=== PATIENT | male | born 1975 | race Caucasian/White ===

== ENCOUNTER → 2019-01-06 | Outpatient (CLI) | payer OTHER ==
--- NOTE | 2019-01-06 15:04 | RAD ---
Bilateral Duplex Carotid Ultrasound, 01/06/2019 Comparison: None available Indication: Dizziness and lightheadedness, hypertension Procedure: Real-time, grayscale, color flow, duplex Doppler and spectral analysis off the carotid arteries is performed and images are obtained . Vertebral arteries were also imaged FINDINGS: Mild scattered soft plaquing seen in both carotid bulbs. No significant calcified plaque is identified Peak systolic velocities in cm/sec: Right side: CCA: 72 ICA: 57 ICA (End Diastolic Velocity): 23 ICA/CCA Ratio: 0.79 Left side: CCA: 89.0 ICA: 73.0 ICA (End Diastolic Velocity): 21.0 ICA/CCA Ratio: 0.82 Vertebral arteries are antegrade. IMPRESSION: 1. Mild soft atheromatous plaquing involving both carotid bulbs and proximal internal carotid arteries. 2. No hemodynamically significant stenosis of internal carotid arteries. PQRS Compliance Statement - Stenosis calculations for CT, MR and conventional angiography are based upon measurement of the distal ICA diameter in accordance with the NASCET methodology. Stenosis calculations for carotid ultrasound studies are derived from validated velocity criteria which are known to correlate with the NASCET methodology. Electronically signed by: Loraine Oconnell MD (01/06/2019 3:01 PM) [place] [id number]
== END | disposition home or self-care (01) ==
LOC: US 12:31
PROVIDERS: ATTEND Nurse Practitioner Family
DX: I65.23 Occlusion and stenosis of bilateral carotid arteries (principal); E78.2 Mixed hyperlipidemia; E11.65 Type 2 diabetes mellitus with hyperglycemia; I10 Essential (primary) hypertension; R53.83 Other fatigue
CPT/HCPCS: 93880

== ENCOUNTER 2019-02-02 08:27 | Emergency (ER) | payer OTHER ==
[~2019-02-02] VITALS: Ht 182.9 cm; Wt 101.2 kg
[2019-02-02] MEDS ORDERED: IV NORMAL SALINE 1,000ML 1,000 ML IV SCH (09:00)
--- NOTE | 2019-02-02 09:11 | EKG ---
[address] [address] Test Date: 2019-02-02 Test Time: 09:09:40 Pat Name: SUMAN RESTREPO Department: Room: Gender: M Postdoctoral Scholar: : 1975 Requested By: KATHY CONDE Order Number: [id number] Reading MD: Elvin Hsu MD Measurements Intervals [place] Rate: 80 P: 26 NM: 156 QRS: 32 QRSD: 90 T: 27 QT: 410 QTc: 477 Interpretive Statements SINUS RHYTHM NON-SPECIFIC ST/T CHANGES PROLONGED QT Electronically Signed On 02-05-2019 9:48:17 CDT by Elvin Hsu MD
--- NOTE | 2019-02-02 09:26 | RAD ---
PORTABLE CHEST 1V History: short of breath, attempted suicide Comparison: February 17, 2008 Findings: AP view of the chest is submitted. There is no infiltrate, pleural fluid, pneumothorax. Heart size is stable, within normal limits. Impression: 1. No acute radiographic abnormality is identified. Electronically signed by: Elliot Slade MD (02/02/2019 9:23 AM) [id number]
[2019-02-02 09:30] LABS: BASO # 0.1 x10^3/uL (0.0-0.2); BASO % 1 % (0-3); EOS # 0.1 x10^3/uL (0.0-0.7); EOS % 1 % (0-3); HEMATOCRIT 45.9 % (39.0-53.0); HEMOGLOBIN 15.9 g/dL (13.0-17.5); LYMPH # 3.5 x10^3/uL (1.0-4.8); LYMPH % 38 % (24-48); MEAN CORPUSCULAR HEMOGLOBIN 27 pg (25-35); MEAN CORPUSCULAR HGB CONC 35 g/dL (31-37); MEAN CORPUSCULAR VOLUME 78 fL (79-100); MONO # 0.8 x10^3/uL (0.0-1.1); MONO % 9 % (0-9); NEUT # 4.7 x10^3uL (1.8-7.7); NEUT % 52 % (31-73); PLATELET COUNT 292 x10^3/uL (140-400); RED BLOOD COUNT 5.85 x10^6/uL (4.30-5.70); RED CELL DISTRIBUTION WIDTH 14.2 % (11.5-14.5); WHITE BLOOD COUNT 9.2 x10^3/uL (4.0-11.0)
[2019-02-02 09:46] LABS: SALIC 3.1 mg/dL (2.8-20.0)
[2019-02-02 09:47] LABS: ACETAMIN < 2.0 mcg/mL (10-30); ETHANOL < 10 mg/dL (0-10)
[2019-02-02 09:51] LABS: ALBUMIN 3.6 g/dL (3.4-5.0); CALCIUM 8.8 mg/dL (8.5-10.1); CREATININE 1.1 mg/dL (0.7-1.3); GFR 73.1; MAGNESIUM 1.7 mg/dL (1.8-2.4); POTASSIUM 3.1 mmol/L (3.5-5.1); TOTAL BILIRUBIN 0.5 mg/dL (0.2-1.0); TOTAL PROTEIN 7.2 g/dL (6.4-8.2)
--- NOTE | 2019-02-02 10:06 | PHYS DOC ---
Past History Past Medical History: Depression, Diabetes, Hypertension Past Surgical History: Other Additional Past Surgical Histo: bilateral knee surgeries Smoking: Cigarettes, Greater than 1 pack/day Alcohol Use: None Drug Use: None Adult General Chief Complaint Chief Complaint: SUICDAL IDEATION HPI HPI Patient is a 43-year-old male who presents with suicide ideation and attempt. Patient has been going through a difficult time over the past 3-6 months. Feeling weak, near syncopal episodes multiple times, especially with standing. He is been getting evaluated by his primary care team for this. For the past several weeks he has been having suicidal ideation. This morning he went to the garage to tie a electric cord around a rafter to hang himself but found that the rafters were too low so he presented to the emergency department. He denies any homicidal ideation. Denies any hallucinations. Denies any coingestants as an overdose attempt.[] Review of Systems Review of Systems Constitutional: Denies fever or chills [] Eyes: Denies change in visual acuity, redness, or eye pain [] HENT: Denies nasal congestion or sore throat [] Respiratory: Denies cough or shortness of breath [] Cardiovascular: No chest pain or palpitations[] GI: Denies abdominal pain, nausea, vomiting, bloody stools or diarrhea [] : Denies dysuria or hematuria [] Musculoskeletal: Denies back pain or joint pain [] Integument: Denies rash or skin lesions [] Neurologic: Denies headache, focal weakness or sensory changes [] Endocrine: Denies polyuria or polydipsia [] All other systems were reviewed and found to be within normal limits, except as documented in this note. Current Medications Current Medications Current Medications Medications (Trade) Dose Ordered Sig/Jovan Start Time Stop Time Status Last Admin Dose Admin Sodium Chloride 1,000 ml @ 1,000 mls/hr Q1H 02/02/19 09:00 02/02/19 09:59 02/02/19 09:23 1,000 MLS/HR Allergies Allergies Allergies Coded Allergies Type Severity Reaction Last Updated Verified methocarbamol Allergy Unknown 02/02/19 Yes Physical Exam Physical Exam Constitutional: Well developed, well nourished, no acute distress, non-toxic appearance. [] HENT: Normocephalic, atraumatic, bilateral external ears normal, oropharynx moist, no oral exudates, nose normal. [] Eyes: PERRLA, EOMI, conjunctiva normal, no discharge. [] Neck: Normal range of motion, no tenderness, supple, no stridor. [] Cardiovascular:Heart rate regular rhythm, no murmur [] Lungs & Thorax: Bilateral breath sounds clear to auscultation [] Abdomen: Bowel sounds normal, soft, no tenderness, no masses, no pulsatile masses. [] Skin: Warm, dry, no erythema, no rash. [] Back: No tenderness, no CVA tenderness. [] Extremities: No tenderness, no cyanosis, no clubbing, ROM intact, no edema. [] Neurologic: Alert and oriented X 3, normal motor function, normal sensory function, no focal deficits noted. [] Psychologic: Affect flat, mood depressed. Poor eye contact[] Current Patient Data Lab Results Laboratory Tests Test 02/02/19 09:15 White Blood Count 9.2 x10^3/uL (4.0-11.0) Red Blood Count 5.85 x10^6/uL (4.30-5.70) H Hemoglobin 15.9 g/dL (13.0-17.5) Hematocrit 45.9 % (39.0-53.0) Mean Corpuscular Volume 78 fL (79-100) L Mean Corpuscular Hemoglobin 27 pg (25-35) Mean Corpuscular Hemoglobin Concent 35 g/dL (31-37) Red Cell Distribution Width 14.2 % (11.5-14.5) Platelet Count 292 x10^3/uL (140-400) Neutrophils (%) (Auto) 52 % (31-73) Lymphocytes (%) (Auto) 38 % (24-48) Monocytes (%) (Auto) 9 % (0-9) Eosinophils (%) (Auto) 1 % (0-3) Basophils (%) (Auto) 1 % (0-3) Neutrophils # (Auto) 4.7 x10^3uL (1.8-7.7) Lymphocytes # (Auto) 3.5 x10^3/uL (1.0-4.8) Monocytes # (Auto) 0.8 x10^3/uL (0.0-1.1) Eosinophils # (Auto) 0.1 x10^3/uL (0.0-0.7) Basophils # (Auto) 0.1 x10^3/uL (0.0-0.2) Sodium Level 134 mmol/L (136-145) L Potassium Level 3.1 mmol/L (3.5-5.1) L Chloride Level 96 mmol/L (98-107) L Carbon Dioxide Level 26 mmol/L (21-32) Anion Gap 12 (6-14) Blood Urea Nitrogen 12 mg/dL (8-26) Creatinine 1.1 mg/dL (0.7-1.3) Estimated GFR (Cockcroft-Gault) 73.1 BUN/Creatinine Ratio 11 (6-20) Glucose Level 93 mg/dL (70-99) Calcium Level 8.8 mg/dL (8.5-10.1) Magnesium Level 1.7 mg/dL (1.8-2.4) L Total Bilirubin 0.5 mg/dL (0.2-1.0) Aspartate Amino Transferase (AST) 26 U/L (15-37) Alanine Aminotransferase (ALT) 45 U/L (16-63) Alkaline Phosphatase 57 U/L (46-116) Troponin I Quantitative < 0.017 ng/mL (0-0.055) MQ-Ypb-Q-Type Natriuretic Peptide 23 pg/mL (0-124) Total Protein 7.2 g/dL (6.4-8.2) Albumin 3.6 g/dL (3.4-5.0) Albumin/Globulin Ratio 1.0 (1.0-1.7) Lipase 199 U/L (73-393) Salicylates Level 3.1 mg/dL (2.8-20.0) Salicylate Last Dose Date Unk Salicylate Last Dose Time Unk Acetaminophen Level < 2.0 mcg/mL (10-30) L Acetaminophen Last Dose Date Unk Acetaminophen Last Dose Time Unk Ethyl Alcohol Level < 10 mg/dL (0-10) EKG EKG EKG shows a sinus rhythm at 80 bpm, normal axis, QTC of 477 ms, no ST elevations. No terminal 40 ms QRS prolongation in lead aVR. Interpreted by me at 0912[] Radiology/Procedures Radiology/Procedures PORTABLE CHEST 1V History: short of breath, attempted suicide Comparison: February 17, 2008 Findings: AP view of the chest is submitted. There is no infiltrate, pleural fluid, pneumothorax. Heart size is stable, within normal limits. Impression: 1. No acute radiographic abnormality is identified.[] Course & Med Decision Making Course & Med Decision Making Pertinent Labs and Imaging studies reviewed. (See chart for details) ED course: Patient arrived, was placed in bed, and tolerated exam well. IV access was established and he was given IV fluids. After the return of the laboratory and imaging studies, these were discussed with the patient and family who voiced understanding. Patient was determined to be medically stable for further evaluation by the mental health team. He is medically cleared. Attempted to use the computer system however that was having issues with connectivity so at 1109 waiting for in person evaluation by mental health professional. Screener arrived at approximately 11:30 1530: resting comfortably. Patient refused lunch. Family at bedside. At approximately 1745 except in some was granted from [facility]. Nurse to nurse communication is occurring at 1755. Patient care endorsed to the oncoming emergency physician at 1800 pending transfer. Medical decision making: Patient with suicide attempt, no evidence of an acute coronary syndrome, significant toxidrome, no active bleeding despite the elevated INR with the patient being on Coumadin. No evidence of salicylate or acetaminophen toxicity, nor ethanol[] Dragon Disclaimer Dragon Disclaimer This electronic medical record was generated, in whole or in part, using a voice recognition dictation system. Departure Departure: Impression: Primary Impression: Depression Additional Impression: Suicide attempt Disposition: 65 XFER TO PSYCH HOSP/UNIT Condition: IMPROVED Referrals: RUPALI ARITA MD (PCP) Problem Qualifiers Primary Impression: Depression Depression Type: unspecified Qualified Codes: F32.9 - Major depressive disorder, single episode, unspecified KATHY CONDE DO Feb 02, 2019 10:06
[2019-02-02 10:15] LABS: AMPHETAMINE/METHAMPHETAMINE NEG (NEG); BARBITURATES NEG (NEG); BENZODIAZEPINES NEG (NEG); CANNABINOIDS NEG (NEG); COCAINE NEG (NEG); METHADONE NEG (NEG); OPIATES NEG (NEG); PHENCYCLIDINE NEG (NEG)
[2019-02-02 10:20] LABS: BACTERIA,URINE 0 /HPF (0-FEW); BILIRUBIN,URINE NEG (NEG); CLARITY,URINE CLEAR; COLOR,URINE YELLOW; GLUCOSE,URINE 500 mg/dL (NEG); NITRITE,URINE NEG (NEG); RBC,URINE 0 /HPF (0-2); SQUAMOUS EPITHELIAL CELL,UR OCC /LPF; UROBILINOGEN,URINE 0.2 mg/dL (0.2 mg/dL); WBC,URINE 0 /HPF (0-4)
[2019-02-02] MEDS ORDERED: NICOTINE 21MG PATCH. TD ONE (18:00)
[2019-02-02 18:31] VITALS: BP 143/74
== END 2019-02-02 19:51 ==
LOC: ER 08:27
DX: T14.91XA Suicide attempt, initial encounter (principal); F32.9 Major depressive disorder, single episode, unspecified; R55 Syncope and collapse; F17.210 Nicotine dependence, cigarettes, uncomplicated; I10 Essential (primary) hypertension; Z88.8 Allergy status to other drugs, medicaments and biological substances; X83.8XXA Intentional self-harm by other specified means, initial encounter; Y93.89 Activity, other specified; Y92.89 Other specified places as the place of occurrence of the external cause; Y99.8 Other external cause status
CPT/HCPCS: 36415; 71045; 80053; 80307; 80329; 81001; 83690; 83735; 83880; 84443; 84484; 85025; 85610; 93005; 96360; 96361; 99285; G0480; 82003; J7030

== ENCOUNTER 2019-10-29 17:04 | Emergency (ER) | payer MEDICAID, OTHER ==
[~2019-10-29] VITALS: Ht 182.9 cm; Wt 105.8 kg
[2019-10-29] MEDS ORDERED: BENZTROPINE 2 MG/2 ML AMPUL. IM STA (17:36)
--- NOTE | 2019-10-29 17:38 | PHYS DOC ---
Past History Past Medical History: Bipolar, Depression, Diabetes, Hypertension Past Surgical History: Appendectomy, Cholecystectomy, Other Additional Past Surgical Histo: bilateral knee surgeries Smoking: Cigarettes, Greater than 1 pack/day Alcohol Use: None Drug Use: None Adult General Chief Complaint Chief Complaint: Insomnia HPI HPI Patient is a 43-year-old male who presented to ER today for evaluation of not able to sleep for the last 48 hours. Patient said he was admitted at [facility] for 3 days due to depression and suicidal ideation. Patient was given medication while in the hospital, he slept for 3 days very well there.. Patient felt much better, he was discharged home with trazodone. Since coming home, patient was not able to sleep. Patient took the trazodone but not working for him. So he came here for evaluation. Patient denies any suicidal ideation, denies homicidal ideation. Patient denies any abdominal pain, no chest pain, headache. he denies any cough or fever, no trouble breathing, no headache. All other ROS is negative unless otherwise noted in HPI Review of Systems Review of Systems See above Current Medications Current Medications Current Medications Medications (Trade) Dose Ordered Sig/Jovan Start Time Stop Time Status Last Admin Dose Admin Benztropine Mesylate (Cogentin) 2 mg PRN BID STAT 10/29/19 17:36 10/29/19 17:37 UNV Allergies Allergies Allergies Coded Allergies Type Severity Reaction Last Updated Verified methocarbamol Allergy Unknown 10/29/19 Yes Physical Exam Physical Exam See above Constitutional: Well developed, well nourished, no acute distress, non-toxic appearance. [] HENT: Normocephalic, atraumatic, bilateral external ears normal, oropharynx moist, no oral exudates, nose normal. [] Eyes: PERRLA, EOMI, conjunctiva normal, no discharge. [] Neck: Normal range of motion, no tenderness, supple, no stridor. [] Cardiovascular:Heart rate regular rhythm, no murmur [] Lungs & Thorax: Bilateral breath sounds clear to auscultation [] Abdomen: Bowel sounds normal, soft, no tenderness, no masses, no pulsatile masses. [] Skin: Warm, dry, no erythema, no rash. [] Back: No tenderness, no CVA tenderness. [] Extremities: No tenderness, no cyanosis, no clubbing, ROM intact, no edema. [] Neurologic: Alert and oriented X 3, normal motor function, normal sensory function, no focal deficits noted. [] Psychologic: Affect normal, judgement normal, mood normal. NO SUICIDAL IDEATION, NO HOMICIDAL IDEATION. Current Patient Data Vital Signs Vital Signs Date Time Temp Pulse Resp B/P (MAP) Pulse Ox O2 Delivery O2 Flow Rate FiO2 10/29/19 17:17 97.6 78 15 97 Room Air EKG EKG [] Radiology/Procedures Radiology/Procedures [] Course & Med Decision Making Course & Med Decision Making Pertinent Labs and Imaging studies reviewed. (See chart for details) Patient was given 2 mg cogentin IM. He felt much more relax. He was discharged home with his with a prescription of ambien. He is to follow up with his family doctor for reevaluation on Saturday. Dragon Disclaimer Dragon Disclaimer This electronic medical record was generated, in whole or in part, using a voice recognition dictation system. Departure Departure: Impression: Primary Impression: Insomnia Disposition: HOME, SELF-CARE Condition: STABLE Referrals: RUPALI ARITA MD (PCP) PLEASE FOLLOW UP WITH YOUR DOCTOR ON SATURDAY FOR REEVALUATION. Patient Instructions: Insomnia Scripts Zolpidem Tartrate (AMBIEN) 10 Mg Tablet 10 MG PO PRN QHS PRN for INSOMNIA for 8 Days, #8 TAB 0 Refills Prov: RUPALI JACOME DO 10/29/19 RUPALI JACOME DO Oct 29, 2019 17:38
[2019-10-29] MEDS ORDERED: ZOLP10TA PO ×2 (18:14→18:16)
[2019-10-29 18:51] VITALS: BP 126/85
== END 2019-10-29 18:53 | disposition home or self-care (01) ==
LOC: ER 17:04
DX: G47.00 Insomnia, unspecified (principal); F31.9 Bipolar disorder, unspecified; E11.9 Type 2 diabetes mellitus without complications; I10 Essential (primary) hypertension; F17.210 Nicotine dependence, cigarettes, uncomplicated; Z88.8 Allergy status to other drugs, medicaments and biological substances
CPT/HCPCS: 96372; 99283; J0515

== ENCOUNTER 2020-01-05 08:40 | Emergency (ER) | payer MEDICAID ==
[~2020-01-05] VITALS: Ht 182.9 cm; Wt 104.4 kg
[~2020-01-05 08:40] MED LIST: ZOLP10TA PO
[2020-01-05] MEDS ORDERED: IV NORMAL SALINE 1,000ML 1,000 ML IV ONE (09:15)
[2020-01-05] MEDS ORDERED: METOCLOPRAMIDE HCL 10 MG/2 ML VIAL. ONE (09:18)
[2020-01-05] MEDS ORDERED: KETOROLAC 15 MG/ML VIAL. ONE (09:18)
[2020-01-05 09:23] LABS: BASO # 0.1 x10^3/uL (0.0-0.2); BASO % 1 % (0-3); EOS # 0.1 x10^3/uL (0.0-0.7); EOS % 2 % (0-3); HEMATOCRIT 47.1 % (39.0-53.0); HEMOGLOBIN 16.2 g/dL (13.0-17.5); LYMPH # 2.8 x10^3/uL (1.0-4.8); LYMPH % 35 % (24-48); MEAN CORPUSCULAR HEMOGLOBIN 28 pg (25-35); MEAN CORPUSCULAR HGB CONC 34 g/dL (31-37); MEAN CORPUSCULAR VOLUME 82 fL (79-100); MONO # 0.7 x10^3/uL (0.0-1.1); MONO % 8 % (0-9); NEUT # 4.4 x10^3uL (1.8-7.7); NEUT % 54 % (31-73); PLATELET COUNT 230 x10^3/uL (140-400); RED BLOOD COUNT 5.75 x10^6/uL (4.30-5.70); RED CELL DISTRIBUTION WIDTH 13.9 % (11.5-14.5)
[2020-01-05] MEDS ORDERED: KETOROLAC 15 MG/ML VIAL. IVP ONE (09:30)
[2020-01-05] MEDS ORDERED: METOCLOPRAMIDE HCL 10 MG/2 ML VIAL. IVP ONE (09:30)
[2020-01-05 09:37] LABS: CALCIUM 8.7 mg/dL (8.5-10.1); CREATININE 1.1 mg/dL (0.7-1.3); GFR 72.7; POTASSIUM 3.2 mmol/L (3.5-5.1)
--- NOTE | 2020-01-05 09:37 | RAD ---
CT Abdomen and Pelvis without contrast History: Right flank pain Technique: Noncontrast CT imaging was performed of the abdomen and pelvis. Multiplanar images are reviewed. Exposure: One or more of the following individualized dose reduction techniques were utilized for this examination: 1. Automated exposure control 2. Adjustment of the mA and/or kV according to patient size 3. Use of iterative reconstruction technique. Comparison: 12/07/2004 Findings: There is no urolithiasis or hydronephrosis. There is no perinephric fluid collection. There is no abnormality of the limited visualized lung bases. Accurate evaluation of abdominal visceral organs is limited without intravenous contrast. There is no obvious focal abnormality of the spleen, liver, or pancreas. There is hepatic steatosis. 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 There has been cholecystectomy. There is no adrenal nodularity. Accurate evaluation of bowel is limited without oral contrast. There is no significant free air, free fluid, bowel dilatation. Appendix not clearly identified if still present, no significant pericecal bipartite change. There is appearance of mild wall thickening of the mid-distal ethmoid colon to the rectum although could be due to incomplete distention. There is mild scattered colonic diverticulosis greatest of the descending and proximal sigmoid colon not associated with inflammatory type change. There is some fat in the left inguinal canal, no bowel. Impression: 1. There is no urolithiasis or hydronephrosis. There is mild nonspecific urinary bladder wall thickening greater anteriorly, cystitis not excluded by imaging. 2. There is hepatic steatosis. 3. Appendix is not clearly identified if still present. Appearance of mild wall prominence of the mid sigmoid colon to the rectum could be due to incomplete distention and peristalsis unless suspicion for mild colitis, no adjacent inflammatory change. Electronically signed by: Elliot Slade MD (01/05/2020 9:34 AM) [id number]
[2020-01-05 09:43] LABS: ALBUMIN 3.5 g/dL (3.4-5.0); TOTAL BILIRUBIN 0.3 mg/dL (0.2-1.0); TOTAL PROTEIN 6.9 g/dL (6.4-8.2)
--- NOTE | 2020-01-05 10:05 | PHYS DOC ---
Past History Past Medical History: Anxiety, Bipolar, Depression, Diabetes, Hypertension, Other Additional Past Medical Histor: factor 5 Past Surgical History: Appendectomy, Cholecystectomy, Other Additional Past Surgical Histo: bilateral knee surgeries Smoking: Cigarettes, Greater than 1 pack/day Alcohol Use: None Drug Use: None Adult General Chief Complaint Chief Complaint: FLANK PAIN HPI HPI Patient is a [age] year old [sex] who presents with [] Review of Systems Review of Systems Constitutional: Denies fever or chills [] Eyes: Denies change in visual acuity, redness, or eye pain [] HENT: Denies nasal congestion or sore throat [] Respiratory: Denies cough or shortness of breath [] Cardiovascular: No additional information not addressed in HPI [] GI: Denies abdominal pain, nausea, vomiting, bloody stools or diarrhea [] : Denies dysuria or hematuria [] Musculoskeletal: Denies back pain or joint pain [] Integument: Denies rash or skin lesions [] Neurologic: Denies headache, focal weakness or sensory changes [] Endocrine: Denies polyuria or polydipsia [] All other systems were reviewed and found to be within normal limits, except as documented in this note. Current Medications Current Medications Current Medications Medications (Trade) Dose Ordered Sig/Jovan Start Time Stop Time Status Last Admin Dose Admin Fentanyl Citrate (Fentanyl 2ml Vial) 50 mcg 1X ONCE 01/05/20 09:45 01/05/20 09:46 DC 01/05/20 10:01 50 MCG Ketorolac Tromethamine (Toradol 15mg Vial) 15 mg STK-MED ONCE 01/05/20 09:18 01/05/20 09:19 DC Metoclopramide HCl (Reglan Vial) 10 mg STK-MED ONCE 01/05/20 09:18 01/05/20 09:18 DC Sodium Chloride 1,000 ml @ 1,000 mls/hr 1X ONCE 01/05/20 09:15 01/05/20 10:14 01/05/20 09:23 1,000 MLS/HR Allergies Allergies Allergies Coded Allergies Type Severity Reaction Last Updated Verified methocarbamol Allergy Unknown 10/29/19 Yes Physical Exam Physical Exam Constitutional: Well developed, well nourished, no acute distress, non-toxic appearance. [] HENT: Normocephalic, atraumatic, bilateral external ears normal, oropharynx moist, no oral exudates, nose normal. [] Eyes: PERRLA, EOMI, conjunctiva normal, no discharge. [] Neck: Normal range of motion, no tenderness, supple, no stridor. [] Cardiovascular:Heart rate regular rhythm, no murmur [] Lungs & Thorax: Bilateral breath sounds clear to auscultation [] Abdomen: Bowel sounds normal, soft, no tenderness, no masses, no pulsatile masses. [] Skin: Warm, dry, no erythema, no rash. [] Back: No tenderness, no CVA tenderness. [] Extremities: No tenderness, no cyanosis, no clubbing, ROM intact, no edema. [] Neurologic: Alert and oriented X 3, normal motor function, normal sensory function, no focal deficits noted. [] Psychologic: Affect normal, judgement normal, mood normal. [] Current Patient Data Vital Signs Vital Signs Date Time Temp Pulse Resp B/P (MAP) Pulse Ox O2 Delivery O2 Flow Rate FiO2 01/05/20 08:40 97.6 85 20 144/92 (109) 100 Room Air Lab Results Laboratory Tests Test 01/05/20 09:06 White Blood Count 8.0 x10^3/uL (4.0-11.0) Red Blood Count 5.75 x10^6/uL (4.30-5.70) H Hemoglobin 16.2 g/dL (13.0-17.5) Hematocrit 47.1 % (39.0-53.0) Mean Corpuscular Volume 82 fL (79-100) Mean Corpuscular Hemoglobin 28 pg (25-35) Mean Corpuscular Hemoglobin Concent 34 g/dL (31-37) Red Cell Distribution Width 13.9 % (11.5-14.5) Platelet Count 230 x10^3/uL (140-400) Neutrophils (%) (Auto) 54 % (31-73) Lymphocytes (%) (Auto) 35 % (24-48) Monocytes (%) (Auto) 8 % (0-9) Eosinophils (%) (Auto) 2 % (0-3) Basophils (%) (Auto) 1 % (0-3) Neutrophils # (Auto) 4.4 x10^3uL (1.8-7.7) Lymphocytes # (Auto) 2.8 x10^3/uL (1.0-4.8) Monocytes # (Auto) 0.7 x10^3/uL (0.0-1.1) Eosinophils # (Auto) 0.1 x10^3/uL (0.0-0.7) Basophils # (Auto) 0.1 x10^3/uL (0.0-0.2) Sodium Level 139 mmol/L (136-145) Potassium Level 3.2 mmol/L (3.5-5.1) L Chloride Level 99 mmol/L (98-107) Carbon Dioxide Level 29 mmol/L (21-32) Anion Gap 11 (6-14) Blood Urea Nitrogen 13 mg/dL (8-26) Creatinine 1.1 mg/dL (0.7-1.3) Estimated GFR (Cockcroft-Gault) 72.7 BUN/Creatinine Ratio 12 (6-20) Glucose Level 113 mg/dL (70-99) H Calcium Level 8.7 mg/dL (8.5-10.1) Magnesium Level 2.0 mg/dL (1.8-2.4) Total Bilirubin 0.3 mg/dL (0.2-1.0) Aspartate Amino Transferase (AST) 22 U/L (15-37) Alanine Aminotransferase (ALT) 33 U/L (16-63) Alkaline Phosphatase 56 U/L (46-116) Total Protein 6.9 g/dL (6.4-8.2) Albumin 3.5 g/dL (3.4-5.0) Albumin/Globulin Ratio 1.0 (1.0-1.7) Lipase 141 U/L (73-393) EKG EKG [] Radiology/Procedures Radiology/Procedures PROCEDURE: CT ABDOMEN PELVIS WO CONTRAST CT Abdomen and Pelvis without contrast History: Right flank pain Technique: Noncontrast CT imaging was performed of the abdomen and pelvis. Multiplanar images are reviewed. Exposure: One or more of the following individualized dose reduction techniques were utilized for this examination: 1. Automated exposure control 2. Adjustment of the mA and/or kV according to patient size 3. Use of iterative reconstruction technique. Comparison: 12/07/2004 Findings: There is no urolithiasis or hydronephrosis. There is no perinephric fluid collection. There is no abnormality of the limited visualized lung bases. Accurate evaluation of abdominal visceral organs is limited without intravenous contrast. There is no obvious focal abnormality of the spleen, liver, or pancreas. There is hepatic steatosis. 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 There has been cholecystectomy. There is no adrenal nodularity. Accurate evaluation of bowel is limited without oral contrast. There is no significant free air, free fluid, bowel dilatation. Appendix not clearly identified if still present, no significant pericecal bipartite change. There is appearance of mild wall thickening of the mid-distal ethmoid colon to the rectum although could be due to incomplete distention. There is mild scattered colonic diverticulosis greatest of the descending and proximal sigmoid colon not associated with inflammatory type change. There is some fat in the left inguinal canal, no bowel. Impression: 1. There is no urolithiasis or hydronephrosis. There is mild nonspecific urinary bladder wall thickening greater anteriorly, cystitis not excluded by imaging. 2. There is hepatic steatosis. 3. Appendix is not clearly identified if still present. Appearance of mild wall prominence of the mid sigmoid colon to the rectum could be due to incomplete distention and peristalsis unless suspicion for mild colitis, no adjacent inflammatory change. Electronically signed by: Elliot Slade MD (01/05/2020 9:34 AM) [id number] Course & Med Decision Making Course & Med Decision Making Pertinent Labs and Imaging studies reviewed. (See chart for details) [] Dragon Disclaimer Dragsheri Disclaimer This electronic medical record was generated, in whole or in part, using a voice recognition dictation system. Departure Departure: Impression: Primary Impression: Flank pain Additional Impression: Hypokalemia Disposition: 01 HOME, SELF-CARE Condition: STABLE Referrals: RUPALI ARITA MD (PCP) Patient Instructions: Flank Pain, [id number], Hypokalemia, Potassium Content of Foods Scripts Orphenadrine Citrate (ORPHENADRINE CITRATE) 100 Mg Tablet.er 1 TAB PO BID PRN for MUSCLE PAIN, #14 TAB 0 Refills Prov: EMILIE YAÑEZ DO 01/05/20 Problem Qualifiers EMILIE YAÑEZ DO Jan 05, 2020 10:05
[2020-01-05] MEDS ORDERED: POTASSIUM CHLORIDE 20 MEQ TABLET.ER. PO ONE (11:30)
[2020-01-05 11:40] VITALS: BP 128/82
[2020-01-05 12:00] LABS: BILIRUBIN,URINE NEG (NEG); CLARITY,URINE CLEAR; COLOR,URINE YELLOW; GLUCOSE,URINE >=1000 mg/dL (NEG)
[2020-01-05 12:01] LABS: BACTERIA,URINE 0 /HPF (0-FEW); NITRITE,URINE NEG (NEG); RBC,URINE OCC /HPF (0-2); SQUAMOUS EPITHELIAL CELL,UR OCC /LPF; UROBILINOGEN,URINE 0.2 mg/dL (0.2 mg/dL); WBC,URINE OCC /HPF (0-4)
[2020-01-05] MEDS ORDERED: ORPH-16 PO (12:03)
== END 2020-01-05 12:20 | disposition home or self-care (01) ==
LOC: ER 08:40
DX: E87.6 Hypokalemia (principal); R10.9 Unspecified abdominal pain; F41.9 Anxiety disorder, unspecified; F32.9 Major depressive disorder, single episode, unspecified; E11.9 Type 2 diabetes mellitus without complications; I10 Essential (primary) hypertension; F17.210 Nicotine dependence, cigarettes, uncomplicated; Z90.49 Acquired absence of other specified parts of digestive tract; Z90.89 Acquired absence of other organs; Z98.890 Other specified postprocedural states; Z88.8 Allergy status to other drugs, medicaments and biological substances
CPT/HCPCS: 36415; 74176; 80053; 81001; 83690; 83735; 85025; 96374; 96375; 99284; J1885; J2765; J3010; J7030